=== PATIENT | female | born 1935 | race Caucasian/White ===

== ENCOUNTER 2017-03-20 18:32 | Emergency (ER) | payer OTHER, MEDICARE ==
[~2017-03-20] VITALS: Ht 160 cm; Wt 54.5 kg
[~2017-03-20 18:32] MED LIST: AMOX TR-K CLV1 EAC4 PO; ASPIR-LOW81 MG PO; ATIVAN0.5 MG PO; Aspirin E.C. PO; Ativan PO; BISAC-EVAC10 MG PR; CALCIUM 600 +1 EAC2 PO; CALTRATE 6001 TABLE1 PO; CELEXA20 MG PO; CIPRO500 MG PO; CIPROFLOXACIN500 M1 PO; CITALOPRAM HBR10 MG PO; CLARITIN10 MG PO; COLACE100 MG PO; COMPAZINE10 MG PO; CYANOCOBALAM1000 MCG PO; Caltrate 600/400 PO; DOXEPIN HC10 MG/1 ML PO; FLAGYL500 MG PO; FLONASE16 G1 BOTH NARES; Glucophage PO; HYCET 7.5 MG-3473 ML PO; HYDROCODON-ACE1 EAC7 PO; LATANOPROST2.5 ML BOTH EYES; LEVOTHYROXINE75 MCG PO; LISINOPRIL20 MG PO; LO-DOSE ASPIRIN81 M1 PO; Levothroid,Synthroid PO; METAMUCIL POWD798 GM PO; METAMUCIL0.52 GM PO; METFORMIN HCL500 M1 PO; METRONIDAZOLE500 MG PO; MIRALAX17 GM PO; MIRALAX255 GM PO; OCUVITE TABLET1 EACH PO; OMEGA 3-6-9 CO1 EACH PO; OMEGA 3-6-91200 MG PO; ONE DAILY FOR1 EAC1 PO; Ocuvite PO; PERCOCET 5/31 TABLET PO; PROBIOTIC1 EAC1 PO; SYNTHROID75 MCG PO; THERAGRAN1 TABLET PO; TYLENOL EXTRA500 MG PO; Theragran PO; Ultram PO; VITAMIN B-6100 MG PO; VITAMIN D-32000 UNI2 PO; VITAMIN D2000 UNIT PO; Vitamin D PO; XALATAN2.5 ML BOTH EYES; Xalatan 0.005% Ophth BOTH EYES; ZOCOR20 MG PO; ZOCOR40 MG PO; ZUPLENZ4 MG PO; Zocor PO; celeXA PO
[2017-03-20 19:11] LABS: HEMATOCRIT 36.7 % (36.0-46.0); PLATELET COUNT 292 K/uL (156-360); RBC DIS.WIDTH-CV 14.1 % (11.8-14.6); RBC DIS.WIDTH-SD 43.5 % (39-53); RED BLOOD COUNT 4.32 M/uL (3.80-5.20)
[2017-03-20 19:40] LABS: CHLORIDE 107 mEq/L (99-109); POTASSIUM 4.8 mEq/L (3.7-5.4); SODIUM 139 mEq/L (136-147)
[2017-03-20 19:41] LABS: GLUCOSE 104 mg/dL (70-99)
[2017-03-20 19:43] LABS: ANION GAP 13 MEQ/L (2-14)
[2017-03-20 19:45] LABS: GFR ESTIMATE (CALCULATED) 46 mL/min/
[2017-03-20 19:46] LABS: UREA NITROGEN (BUN) 23 mg/dL (9-23)
[2017-03-20 21:29] LABS: ADD MIUA? YES; BILIRUBIN NEGATIVE; BLOOD NEGATIVE; COLOR AMBER ((YELLOW)); GLUCOSE (STRIP) NEGATIVE; KETONES NEGATIVE; LEUKOCYTES SMALL; NITRITE NEGATIVE; PROTEIN (STRIP) NEGATIVE; SPECIFIC GRAVITY 1.021 (1.000-1.030); UROBILINOGEN 0.2 MG/DL (0.2-1.0)
[2017-03-20 21:36] LABS: TROP-I INTERPRETATION NEGATIVE; TROPONIN-I < 0.01 ng/mL (0.0-0.30)
[2017-03-20 21:50] LABS: BACTERIA RARE /HPF; EPITHELIAL CELLS RARE /HPF; MUCUS TRACE /LPF; RED BLOOD CELLS 0-5 /HPF (0-5); UCUL ADDED? YES
[2017-03-20] MEDS ORDERED: ZITHROMAX Z-PA250 MG PO (22:17)
[2017-03-20] MEDS ORDERED: VENTOLIN HFA18 GM IH (22:17)
[2017-03-20] MEDS ORDERED: TESSALON PERLE100 MG PO (22:17)
[2017-03-20 22:42] VITALS: BP 115/63
== END 2017-03-20 22:43 | disposition home or self-care (01) ==
LOC: EME 18:32
DX: J06.9 Acute upper respiratory infection, unspecified (principal); R52 Pain, unspecified; E11.9 Type 2 diabetes mellitus without complications; K21.9 Gastro-esophageal reflux disease without esophagitis; F41.9 Anxiety disorder, unspecified; Z85.118 Personal history of other malignant neoplasm of bronchus and lung; Z87.891 Personal history of nicotine dependence
CPT/HCPCS: 71020; 80048; 81003; 84484; 85027; 87086 GA; 93005; 94640; 99281; 99283

== ENCOUNTER 2017-03-26 17:31 | Inpatient (IN) | payer OTHER, MEDICARE ==
[~2017-03-26] VITALS: Ht 160 cm; Wt 52.5 kg
[~2017-03-26 17:31] MED LIST changes: +TESSALON PERLE100 MG PO; +VENTOLIN HFA18 GM IH; +ZITHROMAX Z-PA250 MG PO
[2017-03-26 19:40] LABS: EOSINOPHIL (%) 0.8 % (0-5); EOSINOPHIL COUNT 0.1 K/uL (0-0.3); HEMATOCRIT 35.9 % (36.0-46.0); IMMATURE GRANULOCYTE (%) 0.3 % (0.0-0.7); INSTRUMENT ABS NEUTROPHIL CT 4.7 K/uL; LYMPHOCYTE COUNT 0.5 K/uL (1.0-2.8); MCH 27.5 PG (29.0-34.0); MCHC 32.9 G/DL (30.0-36.0); MCV 83.7 FL (83-99); MEAN PLAT.VOLUME 10.9 uM^3 (9.5-12.4); MONOCYTE (%) 9.8 % (3-12); MONOCYTE COUNT 0.6 K/uL (0-0.8); NEUTROPHIL (%) 80.1 % (45-76); NEUTROPHIL COUNT 4.7 K/uL (1.8-6.4); PLATELET COUNT 296 K/uL (156-360); RBC DIS.WIDTH-CV 14.5 % (11.8-14.6); RBC DIS.WIDTH-SD 44.1 % (39-53); RED BLOOD COUNT 4.29 M/uL (3.80-5.20); WHITE BLOOD COUNT 5.9 K/uL (4.1-10.2)
[2017-03-26 19:53] LABS: CHLORIDE 107 mEq/L (99-109); POTASSIUM 4.1 mEq/L (3.7-5.4); SODIUM 139 mEq/L (136-147)
[2017-03-26 19:55] LABS: GLUCOSE 117 mg/dL (70-99)
[2017-03-26 19:56] LABS: ANION GAP 12 MEQ/L (2-14)
[2017-03-26 19:57] LABS: TOTAL BILIRUBIN 0.5 mg/dL (0.0-1.0)
[2017-03-26] MEDS ORDERED: DELTASONE20 M1 PO (19:57)
[2017-03-26] MEDS ORDERED: DONEPEZIL HCL10 MG PO (19:58)
[2017-03-26] MEDS ORDERED: METFORMIN HCL500 M1 PO (19:58)
[2017-03-26 19:59] LABS: ALKALINE PHOSPHATASE 95 IU/L (3-129); GFR ESTIMATE (CALCULATED) 56 mL/min/
[2017-03-26 20:00] LABS: UREA NITROGEN (BUN) 24 mg/dL (9-23)
[2017-03-26 21:53] LABS: INTER. NORMALIZED RATIO 1.3; PROTHROMBIN TIME 14.2 SEC (10.2-12.9)
[2017-03-26 21:56] LABS: PTT 26.1 SEC (25-37)
[2017-03-26 22:11] VITALS: BP 89/54
[2017-03-27 00:12] VITALS: BP 163/71
[2017-03-27 07:44] VITALS: BP 132/80
[2017-03-27 11:46] VITALS: BP 142/80
[2017-03-27 16:05] VITALS: BP 131/59
[2017-03-27 19:37] VITALS: BP 141/64
[2017-03-27 23:27] VITALS: BP 180/76
[2017-03-28 03:54] VITALS: BP 107/57
[2017-03-28 06:07] LABS: HEMATOCRIT 33.9 % (36.0-46.0); MCH 26.8 PG (29.0-34.0); MCHC 31.6 G/DL (30.0-36.0); MCV 84.8 FL (83-99); MEAN PLAT.VOLUME 10.8 uM^3 (9.5-12.4); PLATELET COUNT 270 K/uL (156-360); RBC DIS.WIDTH-CV 14.2 % (11.8-14.6); RBC DIS.WIDTH-SD 44.1 % (39-53); WHITE BLOOD COUNT 7.3 K/uL (4.1-10.2)
[2017-03-28 06:41] LABS: ANION GAP 11 MEQ/L (2-14); CHLORIDE 106 MEQ/L (99-109); GFR ESTIMATE (CALCULATED) 56 mL/min/; GLUCOSE 105 mg/dL (70-99); SAMPLE HEMOLYSIS CHECK 0; SAMPLE ICTERIC CHECK 0; SAMPLE LIPEMIA CHECK 0; SODIUM 139 MEQ/L (136-147); UREA NITROGEN (BUN) 12 mg/dL (9-23)
[2017-03-28 08:09] VITALS: BP 141/67
[2017-03-28 12:28] VITALS: BP 124/58
[2017-03-28 17:00] VITALS: BP 97/51
[2017-03-28 19:46] VITALS: BP 127/60
[2017-03-28 23:57] VITALS: BP 131/59
[2017-03-29 03:40] VITALS: BP 141/65
[2017-03-29 08:00] VITALS: BP 130/68
[2017-03-29 12:17] VITALS: BP 122/60
[2017-03-29 16:46] VITALS: BP 128/70
[2017-03-29 18:52] VITALS: BP 148/60
[2017-03-29 22:49] VITALS: BP 136/74
[2017-03-30] VITALS (7 sets, daily range): BP systolic 100–146; BP diastolic 63–67
[2017-03-30 06:46] LABS: EOSINOPHIL (%) 0 % (0-5); IMMATURE GRANULOCYTE (%) 0.8 % (0.0-0.7); INSTRUMENT ABS NEUTROPHIL CT 4.4 K/uL; LYMPHOCYTE COUNT 0.3 K/uL (1.0-2.8); MCH 26.9 PG (29.0-34.0); MCHC 31.8 G/DL (30.0-36.0); MCV 84.4 FL (83-99); MEAN PLAT.VOLUME 11.3 uM^3 (9.5-12.4); MONOCYTE (%) 1.3 % (3-12); MONOCYTE COUNT 0.1 K/uL (0-0.8); NEUTROPHIL (%) 91.4 % (45-76); NEUTROPHIL COUNT 4.4 K/uL (1.8-6.4); PLATELET COUNT 291 K/uL (156-360); RBC DIS.WIDTH-CV 14.2 % (11.8-14.6); RBC DIS.WIDTH-SD 43.9 % (39-53); RED BLOOD COUNT 3.91 M/uL (3.80-5.20); WHITE BLOOD COUNT 4.8 K/uL (4.1-10.2)
[2017-03-30 07:09] LABS: ALKALINE PHOSPHATASE 83 IU/L (3-129); ANION GAP 9 MEQ/L (2-14); CHLORIDE 106 MEQ/L (99-109); GFR ESTIMATE (CALCULATED) > 59 mL/min/; POTASSIUM 4.3 MEQ/L (3.7-5.4); SAMPLE HEMOLYSIS CHECK 0; SAMPLE ICTERIC CHECK 0; SAMPLE LIPEMIA CHECK 0; SODIUM 138 MEQ/L (136-147); TOTAL BILIRUBIN 0.5 MG/DL (0.0-1.0); UREA NITROGEN (BUN) 14 mg/dL (9-23)
[2017-03-30 07:11] LABS: GLUCOSE 238 mg/dL (70-99)
[2017-03-30 10:37] LABS: INTERNAL CONTROL VALID? YES
[2017-03-30 11:17] LABS: POINT-OF-CARE METER ID UU13113774
[2017-03-30 16:14] LABS: POINT-OF-CARE METER ID UU13113725
[2017-03-30 22:56] LABS: POINT-OF-CARE METER ID UU13113774
[2017-03-31 02:59] VITALS: BP 174/74
[2017-03-31 06:01] LABS: POINT-OF-CARE METER ID UU13113774
[2017-03-31 06:44] LABS: EOSINOPHIL (%) 0 % (0-5); HEMATOCRIT 32.5 % (36.0-46.0); IMMATURE GRANULOCYTE (%) 0.6 % (0.0-0.7); IMMATURE GRANULOCYTE COUNT 0.1 K/uL; INSTRUMENT ABS NEUTROPHIL CT 9.1 K/uL; LYMPHOCYTE COUNT 0.3 K/uL (1.0-2.8); MCV 84.4 FL (83-99); MEAN PLAT.VOLUME 11.2 uM^3 (9.5-12.4); MONOCYTE COUNT 0.5 K/uL (0-0.8); NEUTROPHIL (%) 91.3 % (45-76); NEUTROPHIL COUNT 9.1 K/uL (1.8-6.4); PLATELET COUNT 319 K/uL (156-360); RBC DIS.WIDTH-CV 14.4 % (11.8-14.6); RED BLOOD COUNT 3.85 M/uL (3.80-5.20)
[2017-03-31 07:17] LABS: ANION GAP 8 MEQ/L (2-14); CHLORIDE 108 MEQ/L (99-109); GFR ESTIMATE (CALCULATED) 56 mL/min/; GLUCOSE 175 mg/dL (70-99); POTASSIUM 4.2 MEQ/L (3.7-5.4); SAMPLE HEMOLYSIS CHECK 0; SAMPLE ICTERIC CHECK 0; SAMPLE LIPEMIA CHECK 0; SODIUM 141 MEQ/L (136-147); UREA NITROGEN (BUN) 16 mg/dL (9-23)
[2017-03-31 08:11] VITALS: BP 174/74
[2017-03-31 11:07] VITALS: BP 141/67
[2017-03-31 11:26] LABS: POINT-OF-CARE METER ID UU13113725
[2017-03-31 16:20] VITALS: BP 149/69
[2017-03-31 16:22] LABS: POINT-OF-CARE METER ID UU13113725
[2017-03-31 16:26] LABS: METH RESISTANT S AUREUS PCR NEGATIVE (NEGATIVE)
[2017-03-31 16:35] LABS: PROBE CHECK PASS; SPECIMEN PROCESSING CONTROL PASS
[2017-03-31 21:34] LABS: POINT-OF-CARE METER ID UU13113774
[2017-03-31 23:59] VITALS: BP 121/59
[2017-04-01 03:30] VITALS: BP 119/58
[2017-04-01 05:45] LABS: POINT-OF-CARE METER ID UU13113774
[2017-04-01 06:42] VITALS: BP 176/65
[2017-04-01 06:46] LABS: HEMATOCRIT 34.6 % (36.0-46.0); MCH 27.2 PG (29.0-34.0); MCHC 31.8 G/DL (30.0-36.0); MCV 85.6 FL (83-99); MEAN PLAT.VOLUME 11.2 uM^3 (9.5-12.4); PLATELET COUNT 325 K/uL (156-360); RBC DIS.WIDTH-CV 14.5 % (11.8-14.6); RBC DIS.WIDTH-SD 45.3 % (39-53); RED BLOOD COUNT 4.04 M/uL (3.80-5.20); WHITE BLOOD COUNT 8.7 K/uL (4.1-10.2)
[2017-04-01 07:15] LABS: ANION GAP 10 MEQ/L (2-14); CHLORIDE 107 MEQ/L (99-109); GFR ESTIMATE (CALCULATED) 56 mL/min/; GLUCOSE 181 mg/dL (70-99); SAMPLE HEMOLYSIS CHECK 0; SAMPLE ICTERIC CHECK 0; SAMPLE LIPEMIA CHECK 0; SODIUM 141 MEQ/L (136-147); UREA NITROGEN (BUN) 19 mg/dL (9-23)
[2017-04-01 11:39] LABS: POINT-OF-CARE METER ID UU13113725
[2017-04-01 15:20] VITALS: BP 138/64
[2017-04-01 16:32] LABS: POINT-OF-CARE METER ID UU13113725
[2017-04-01 19:55] VITALS: BP 142/86
[2017-04-01 21:53] LABS: POINT-OF-CARE METER ID UU13113725
[2017-04-01 23:04] VITALS: BP 140/82
[2017-04-02 05:59] LABS: HEMATOCRIT 33.9 % (36.0-46.0); MCHC 32.7 G/DL (30.0-36.0); MCV 85.4 FL (83-99); MEAN PLAT.VOLUME 10.8 uM^3 (9.5-12.4); PLATELET COUNT 300 K/uL (156-360); RBC DIS.WIDTH-CV 14.6 % (11.8-14.6); RBC DIS.WIDTH-SD 45.1 % (39-53); RED BLOOD COUNT 3.97 M/uL (3.80-5.20); WHITE BLOOD COUNT 10.3 K/uL (4.1-10.2)
[2017-04-02 06:55] LABS: POINT-OF-CARE METER ID UU13113725
[2017-04-02 07:31] VITALS: BP 158/68
[2017-04-02 12:00] VITALS: BP 131/60
[2017-04-02 12:02] LABS: POINT-OF-CARE METER ID UU13113725
[2017-04-02 12:17] LABS: POINT-OF-CARE METER ID UU13113774
[2017-04-02 15:27] LABS: POINT-OF-CARE METER ID UU13113725
[2017-04-02 15:43] VITALS: BP 122/58
[2017-04-02 21:36] LABS: POINT-OF-CARE METER ID UU13113725
[2017-04-02 23:42] VITALS: BP 147/60
[2017-04-03 06:17] LABS: POINT-OF-CARE METER ID UU13113774
[2017-04-03 07:42] VITALS: BP 166/72
[2017-04-03 11:24] LABS: POINT-OF-CARE METER ID UU13113774
[2017-04-03 14:50] VITALS: BP 143/85
[2017-04-03 15:48] LABS: POINT-OF-CARE METER ID UU14107333
[2017-04-03 21:07] LABS: POINT-OF-CARE METER ID UU13113725
[2017-04-04 00:44] VITALS: BP 118/58
[2017-04-04 06:17] LABS: POINT-OF-CARE METER ID UU13113725
[2017-04-04 06:59] LABS: EOSINOPHIL (%) 0.3 % (0-5); HEMATOCRIT 34.8 % (36.0-46.0); IMMATURE GRANULOCYTE (%) 0.9 % (0.0-0.7); IMMATURE GRANULOCYTE COUNT 0.1 K/uL; INSTRUMENT ABS NEUTROPHIL CT 8.8 K/uL; LYMPHOCYTE COUNT 0.4 K/uL (1.0-2.8); MCH 27.9 PG (29.0-34.0); MCHC 32.2 G/DL (30.0-36.0); MCV 86.6 FL (83-99); MEAN PLAT.VOLUME 11.6 uM^3 (9.5-12.4); MONOCYTE (%) 7.2 % (3-12); MONOCYTE COUNT 0.7 K/uL (0-0.8); NEUTROPHIL (%) 87.4 % (45-76); NEUTROPHIL COUNT 8.8 K/uL (1.8-6.4); PLATELET COUNT 291 K/uL (156-360); RBC DIS.WIDTH-CV 15.1 % (11.8-14.6); RBC DIS.WIDTH-SD 47.4 % (39-53); RED BLOOD COUNT 4.02 M/uL (3.80-5.20)
[2017-04-04 07:32] LABS: ANION GAP 9 MEQ/L (2-14); CHLORIDE 102 MEQ/L (99-109); GFR ESTIMATE (CALCULATED) > 59 mL/min/; GLUCOSE 139 mg/dL (70-99); SAMPLE HEMOLYSIS CHECK 0; SAMPLE ICTERIC CHECK 0; SAMPLE LIPEMIA CHECK 0; SODIUM 139 MEQ/L (136-147); UREA NITROGEN (BUN) 18 mg/dL (9-23)
[2017-04-04 07:52] VITALS: BP 119/65
[2017-04-04 10:57] VITALS: BP 100/38
[2017-04-04 11:07] LABS: POINT-OF-CARE METER ID UU13113774
[2017-04-04 15:23] LABS: POINT-OF-CARE METER ID UU13113774
[2017-04-04 15:30] VITALS: BP 117/56
[2017-04-04 21:10] LABS: POINT-OF-CARE METER ID UU13113725
[2017-04-05 00:20] VITALS: BP 125/58
[2017-04-05 06:18] LABS: POINT-OF-CARE METER ID UU13113725
[2017-04-05 07:31] VITALS: BP 118/59
[2017-04-05 11:49] LABS: POINT-OF-CARE METER ID UU13113725
[2017-04-05] MEDS ORDERED: ADVAIR HFA120 INHALA IH (12:21)
[2017-04-05] MEDS ORDERED: BENZONATATE100 MG PO (12:21)
[2017-04-05] MEDS ORDERED: PREDNISONE10 MG PO (12:21)
[2017-04-05] MEDS ORDERED: NOVOLOG PE100 UNITS/ SQ (14:37)
[2017-04-05] MEDS ORDERED: SPIRIVA RESPIMAT4 G1 IH (14:39)
[2017-04-05] MEDS ORDERED: HEPARIN SO5000 UNIT4 SC (14:41)
[2017-04-05] MEDS ORDERED: LIDOCAINE700 MG TP (14:46)
[2017-04-05] MEDS ORDERED: COLACE100 MG PO (14:47)
[2017-04-05] MEDS ORDERED: PRAVACHOL40 MG PO (14:48)
[2017-04-05] MEDS ORDERED: TYLENOL REGULA325 MG PO (14:49)
== END 2017-04-05 13:34 | DRG 190 ==
LOC: EME 17:31 → 5EAST 20:14 → EDOF 20:14 → ENRESERV 20:24 → 5EAST 21:55
PROVIDERS: Emergency Medicine; Hospitalist; Internal Medicine; Physician Assistant Medical; Student in an Organized Health Care Education/Training Program
PROC: 0BCB8ZZ Extirpation of Matter from Left Lower Lobe Bronchus, Via Natural or Artificial Opening Endoscopic (ICD-10-PCS; principal; 2017-04-03)
DX: J44.0 Chronic obstructive pulmonary disease with (acute) lower respiratory infection (principal); J18.9 Pneumonia, unspecified organism; J96.01 Acute respiratory failure with hypoxia; J98.11 Atelectasis; C34.32 Malignant neoplasm of lower lobe, left bronchus or lung; Z66 Do not resuscitate; T17.590A Other foreign object in bronchus causing asphyxiation, initial encounter; C34.82 Malignant neoplasm of overlapping sites of left bronchus and lung; F05 Delirium due to known physiological condition; F02.80 Dementia in other diseases classified elsewhere, unspecified severity, without behavioral disturbance, psychotic disturbance, mood disturbance, and anxiety; G30.1 Alzheimer's disease with late onset; H40.9 Unspecified glaucoma; K21.9 Gastro-esophageal reflux disease without esophagitis; I12.9 Hypertensive chronic kidney disease with stage 1 through stage 4 chronic kidney disease, or unspecified chronic kidney disease; N18.3 Chronic kidney disease, stage 3 (moderate); E11.22 Type 2 diabetes mellitus with diabetic chronic kidney disease; E03.9 Hypothyroidism, unspecified; E78.5 Hyperlipidemia, unspecified; Y84.2 Radiological procedure and radiotherapy as the cause of abnormal reaction of the patient, or of later complication, without mention of misadventure at the time of the procedure; Z79.82 Long term (current) use of aspirin; Z79.84 Long term (current) use of oral hypoglycemic drugs; Z85.118 Personal history of other malignant neoplasm of bronchus and lung; Z87.442 Personal history of urinary calculi; Z87.891 Personal history of nicotine dependence; Z90.2 Acquired absence of lung [part of]; Z90.49 Acquired absence of other specified parts of digestive tract; Z86.73 Personal history of transient ischemic attack (TIA), and cerebral infarction without residual deficits; Z90.5 Acquired absence of kidney; Z92.21 Personal history of antineoplastic chemotherapy; Z92.3 Personal history of irradiation
CPT/HCPCS: 71010; 71250; 78582; 80048; 80053; 82948; 83605; 83735; 85025; 85027; 85379; 85610; 85730; 87040; 87070; 87081; 87116; 87205; 87206; 87449; 87641; 88108; 90686; 92526 GN; 92610 GN; 93005; 93970; 94010; 94640; 94640 76; 94667; 94668; 94799; 97530 GO; 97530 GP; 99202; 99281; 99285; A9540; A9567; G0008; J0456; J0696; J1644; J1815; J2250; J2310; J2543; J2920; J2930; J3010; J7050; J7120; J7512

== ENCOUNTER 2017-04-05 11:23 | Inpatient (IN) | payer OTHER, MEDICARE ==
[~2017-04-05] VITALS: Ht 160 cm; Wt 61.8 kg
[~2017-04-05 11:23] MED LIST changes: +DELTASONE20 M1 PO; +DONEPEZIL HCL10 MG PO
[2017-04-05] MEDS ORDERED: BENZONATATE100 MG PO (12:21)
[2017-04-05] MEDS ORDERED: ADVAIR HFA120 INHALA IH (12:21)
[2017-04-05] MEDS ORDERED: PREDNISONE10 MG PO (12:21)
[2017-04-05 14:01] VITALS: BP 132/60
[2017-04-05] MEDS ORDERED: NOVOLOG PE100 UNITS/ SQ (14:37)
[2017-04-05] MEDS ORDERED: SPIRIVA RESPIMAT4 G1 IH (14:39)
[2017-04-05] MEDS ORDERED: HEPARIN SO5000 UNIT4 SC (14:41)
[2017-04-05] MEDS ORDERED: LIDOCAINE700 MG TP (14:46)
[2017-04-05] MEDS ORDERED: COLACE100 MG PO (14:47)
[2017-04-05] MEDS ORDERED: PRAVACHOL40 MG PO (14:48)
[2017-04-05] MEDS ORDERED: TYLENOL REGULA325 MG PO (14:49)
[2017-04-05 16:54] LABS: POINT-OF-CARE METER ID UU13113720; POINT-OF-CARE USER ID ENVGAF
[2017-04-05 21:24] LABS: POINT-OF-CARE METER ID UU14174215
[2017-04-06 00:20] VITALS: BP 139/63
[2017-04-06 05:29] VITALS: BP 127/65
[2017-04-06 06:31] LABS: MCH 28.4 PG (29.0-34.0); MCHC 32.8 G/DL (30.0-36.0); MCV 86.5 FL (83-99); MEAN PLAT.VOLUME 11.7 uM^3 (9.5-12.4); PLATELET COUNT 288 K/uL (156-360); RBC DIS.WIDTH-CV 15.3 % (11.8-14.6); RBC DIS.WIDTH-SD 47.9 % (39-53); RED BLOOD COUNT 4.16 M/uL (3.80-5.20)
[2017-04-06 06:51] LABS: ALKALINE PHOSPHATASE 84 IU/L (3-129); ANION GAP 8 MEQ/L (2-14); CHLORIDE 101 MEQ/L (99-109); GFR ESTIMATE (CALCULATED) > 59 mL/min/; GLUCOSE 155 mg/dL (70-99); POTASSIUM 3.9 MEQ/L (3.7-5.4); SAMPLE HEMOLYSIS CHECK 0; SAMPLE ICTERIC CHECK 0; SAMPLE LIPEMIA CHECK 0; SODIUM 136 MEQ/L (136-147); TOTAL BILIRUBIN 0.6 MG/DL (0.0-1.0); UREA NITROGEN (BUN) 18 mg/dL (9-23)
[2017-04-06 06:54] LABS: POINT-OF-CARE METER ID UU13113720; POINT-OF-CARE USER ID ENVGAF
[2017-04-06 11:46] LABS: POINT-OF-CARE METER ID UU13113720; POINT-OF-CARE USER ID ENVGAF
[2017-04-06 14:57] VITALS: BP 87/52
[2017-04-06 16:16] LABS: POINT-OF-CARE METER ID UU13113720; POINT-OF-CARE USER ID ENVGAF
[2017-04-06 17:58] VITALS: BP 108/54
[2017-04-06 21:15] LABS: POINT-OF-CARE METER ID UU13113720
[2017-04-07 04:55] VITALS: BP 119/59
[2017-04-07 07:23] LABS: POINT-OF-CARE METER ID UU13113720; POINT-OF-CARE USER ID AHSSSJB31
[2017-04-07 11:39] LABS: POINT-OF-CARE METER ID UU13113720; POINT-OF-CARE USER ID AHSSSJB31
[2017-04-07 15:35] VITALS: BP 98/49
[2017-04-07 16:56] LABS: POINT-OF-CARE METER ID UU14174215
[2017-04-07] MEDS ORDERED: METFORMIN HCL500 M4 PO (17:04)
[2017-04-07 20:58] LABS: POINT-OF-CARE METER ID UU14174215
[2017-04-08 05:16] VITALS: BP 114/58
[2017-04-08 07:16] LABS: POINT-OF-CARE METER ID UU14174215
[2017-04-08 11:27] LABS: POINT-OF-CARE METER ID UU13113720; POINT-OF-CARE USER ID AHSSSJB31
[2017-04-08 15:42] VITALS: BP 107/55
[2017-04-08 16:51] LABS: POINT-OF-CARE METER ID UU14174215
[2017-04-08 20:37] LABS: POINT-OF-CARE METER ID UU14174215
[2017-04-09 05:33] VITALS: BP 131/64
[2017-04-09 07:22] LABS: POINT-OF-CARE METER ID UU14174215; POINT-OF-CARE USER ID AHSSSJB31
[2017-04-09 11:59] LABS: POINT-OF-CARE METER ID UU13113720; POINT-OF-CARE USER ID AHSSSJB31
[2017-04-09 15:14] VITALS: BP 96/52
[2017-04-09 16:42] LABS: POINT-OF-CARE METER ID UU13113720
[2017-04-09 18:31] LABS: POINT-OF-CARE METER ID UU14174215
[2017-04-09 21:06] LABS: POINT-OF-CARE METER ID UU14174215
[2017-04-10 05:21] VITALS: BP 137/61
[2017-04-10 07:45] VITALS: BP 98/58
[2017-04-10 07:54] VITALS: BP 100/58
[2017-04-10 07:57] LABS: POINT-OF-CARE METER ID UU13113720
[2017-04-10 11:48] LABS: POINT-OF-CARE METER ID UU13113720
[2017-04-10 15:13] VITALS: BP 98/52
[2017-04-10] MEDS ORDERED: GUAIFENESI100 MG/5 M PO (15:49)
[2017-04-10] MEDS ORDERED: ADVAIR HFA120 INHALA IH (15:49)
[2017-04-10] MEDS ORDERED: VENTOLIN HFA18 GM IH (15:49)
[2017-04-10] MEDS ORDERED: SPIRIVA RESPIMAT4 G1 IH (15:49)
[2017-04-10 16:25] LABS: POINT-OF-CARE METER ID UU14174215
[2017-04-10 21:06] LABS: POINT-OF-CARE METER ID UU14174215
[2017-04-11 05:16] VITALS: BP 96/52
[2017-04-11 07:30] VITALS: BP 102/55
[2017-04-11 07:38] LABS: POINT-OF-CARE METER ID UU13113720; POINT-OF-CARE USER ID AHSSSJB31
[2017-04-11] MEDS ORDERED: ADVAIR HFA120 INHALA IH (10:06)
[2017-04-11 11:29] LABS: POINT-OF-CARE METER ID UU14174215; POINT-OF-CARE USER ID AHSSSJB31
[2017-04-18] MEDS ORDERED: VITAMIN B-6100 MG PO (16:23)
== END 2017-04-11 16:02 | disposition home health service (06) | DRG 945 ==
LOC: 3WEST 11:23 → ENPENDDIS 04-11 → 3WEST 04-11 16:02
PROVIDERS: Physical Medicine & Rehabilitation Pain Medicine; Psychiatry & Neurology Neurology
PROC: F07M7ZZ Manual Therapy Techniques Treatment of Musculoskeletal System - Whole Body (ICD-10-PCS; principal; 2017-04-05)
DX: R53.1 Weakness (principal); J18.9 Pneumonia, unspecified organism; G93.40 Encephalopathy, unspecified; J96.01 Acute respiratory failure with hypoxia; J44.0 Chronic obstructive pulmonary disease with (acute) lower respiratory infection; E87.1 Hypo-osmolality and hyponatremia; C34.90 Malignant neoplasm of unspecified part of unspecified bronchus or lung; E11.22 Type 2 diabetes mellitus with diabetic chronic kidney disease; E03.9 Hypothyroidism, unspecified; E78.5 Hyperlipidemia, unspecified; J98.11 Atelectasis; F03.90 Unspecified dementia, unspecified severity, without behavioral disturbance, psychotic disturbance, mood disturbance, and anxiety; I12.9 Hypertensive chronic kidney disease with stage 1 through stage 4 chronic kidney disease, or unspecified chronic kidney disease; K52.9 Noninfective gastroenteritis and colitis, unspecified; N20.0 Calculus of kidney; N18.3 Chronic kidney disease, stage 3 (moderate); Z90.5 Acquired absence of kidney; Z90.49 Acquired absence of other specified parts of digestive tract; Z86.73 Personal history of transient ischemic attack (TIA), and cerebral infarction without residual deficits; Z72.0 Tobacco use; Z79.82 Long term (current) use of aspirin; Z79.84 Long term (current) use of oral hypoglycemic drugs; Z79.899 Other long term (current) drug therapy; Z85.118 Personal history of other malignant neoplasm of bronchus and lung; Z87.01 Personal history of pneumonia (recurrent); Z87.442 Personal history of urinary calculi; Z90.2 Acquired absence of lung [part of]; H40.9 Unspecified glaucoma; H35.30 Unspecified macular degeneration
CPT/HCPCS: 80053; 82948; 85027; 92523 GN; 94010; 94640; 94640 76; 94668; 94799; 97110 GO; 97530 GP; 99202; J1644; J7512